=== PATIENT | male | born 1960 | race Caucasian/White ===

== ENCOUNTER 2016-07-03 08:44 | Emergency (ER) | payer MEDICARE ==
[~2016-07-03 08:44] MED LIST: ASA5GR PO; ASAB PO; ASABAYER PO; ATV1 PO; BENTYL10 PO; CENTRUM PO; CORDARONE PO; COREG3 PO; D100 PO; FLEXERIL5 MG PO; GLUCPH PO; GOODY'S EX-STR1 EAC1 PO; HALF81 PO; IMDUR30 PO; KAPIDEX60 MG PO; KLONO1 PO; LIPITOR40 PO; MONODOX100 MG PO; MULTIPLE VIT PO; NITROQUICK0.4 MG SL; NITROSTAT0.3 MG SL; NITROSTAT0.4 MG; NITROSTAT0.4 MG SL; NORCO1 TA1 PO; PEP20 PO; PHENYTOIN EX PO; PLAVIX PO; PRAVACHOL40 MG PO; PRIN2.5 PO; PROTONIX PO; SUCR PO; VITC500 PO
[2016-07-03 09:25] LABS: BASOPHILS 0.7 %; BASOPHILS ABSOLUTE 0.05 10/3/uL (0.0-0.16); EOSINOPHILS 1.7 %; EOSINOPHILS ABSOLUTE 0.13 10/3/uL (0.0-0.53); HEMOGLOBIN 11.8 g/dL (13.6-17.8); IMMATURE GRANULOCYTES 0.4 %; IMMATURE GRANULOCYTES ABSOLUTE 0.03 10/3/uL (0.0-0.11); LYMPHOCYTES 19.8 %; LYMPHOCYTES ABSOLUTE 1.47 10/3/uL (0.67-4.30); MEAN CORPUS HGB CONC 32.9 g/dL (32.0-36.0); MEAN CORPUSCULAR HEMOGLOB 29.1 pg (26.0-34.0); MEAN PLATELET VOLUME 8.6 fL (9.2-13.0); MONOCYTES 8.9 %; MONOCYTES ABSOLUTE 0.66 10/3/uL (0.21-1.20); NEUTROPHILS 68.5 %; PLATELET COUNT 320 10/3/uL (150-400); RBC DISTRIBUTION WIDTH 15.6 % (12.0-16.0); RED CELL COUNT 4.06 10/6/uL (4.7-6.1); WHITE BLOOD CELLS 7.4 10/3/uL (4.5-10.5)
[2016-07-03 09:27] LABS: HEMATOCRIT 35.9 % (40.0-51.0); MANUAL DIFF NO %; MEAN CORPUSCULAR VOLUME 88.4 fL (80-100)
[2016-07-03 09:31] LABS: ASCORBIC ACID (UR NOT ORDER) NEG (NEG); BILIRUBIN, URINE NEGATIVE (NEG); ER URINALYSIS TAT 0 Hrs 08 Mins; KETONE, URINE NEGATIVE (NEG); LEUKOCYTE ESTERASE(NOT OR NEG (NEG); NITRITE (URINE) NEG (NEG); WBC (NOT ORDERED) (RFLEX) < 1 (0-5)
[2016-07-03 09:32] LABS: INTERNATIONAL NORMAL RATI 1.1 UNITS (-); PROTIME (NOT ORD) 14.1 SEC (12.0-14.5)
[2016-07-03 09:33] LABS: PARTIAL THROMBO TIME 31.2 SEC (22.5-37.2)
[2016-07-03 09:44] LABS: CALCIUM, SERUM 8.9 MG/DL (8.5-10.4); CHEST PAIN PROFILE TAT 0 Hrs 25 Mins; CHLORIDE, SERUM 106 MMOL/L (96-112); CO2 (CARBON DIOXIDE) 27 MMOL/L (24-34); CREATININE 0.52 MG/DL (0.70-1.30); GFR AFRICAN AMERICAN 137 ML/MIN (>=60); GFR NON AFRICAN AMERICAN 118 ML/MIN (>=60); POTASSIUM, SERUM 4.2 MMOL/L (3.5-5.3); SGOT(AST) 18 U/L (5-40); SGPT(ALT) 15 U/L (5-65); SODIUM, SERUM 140 MMOL/L (135-148); TOTAL BILIRUBIN 0.1 MG/DL (0-1.2); TOTAL PROTEIN 6.4 G/DL (6.0-8.5); TROPONIN I 0.02 NG/ML (<0.05)
[2016-07-03 09:45] LABS: ALBUMIN 2.7 G/DL (3.5-5.0); ALKALINE PHOSPHATASE 84 U/L (45-117); BUN (BLOOD UREA NITROGEN) 6 MG/DL (6-23); DIRECT BILIRUBIN < 0.1 MG/DL (0.0-0.4); GLUCOSE, SERUM 102 MG/DL (60-99)
[2016-07-03 10:45] LABS: DILANTIN (PHENYTOIN) 1.7 MCG/ML (10.0-20.0)
[2016-11-10] MEDS ORDERED: PEP20 PO (16:07)
[2016-11-10] MEDS ORDERED: SUCR PO (16:07)
[2016-11-10] MEDS ORDERED: D100 PO (16:07)
[2016-11-10] MEDS ORDERED: LIPITOR40 PO (16:07)
[2016-11-10] MEDS ORDERED: KAPIDEX60 MG PO (16:08)
[2016-11-10] MEDS ORDERED: PLAVIX PO (16:08)
== END 2016-07-03 11:16 | disposition home or self-care (01) ==
LOC: ER 08:44
PROVIDERS: Emergency Medicine
DX: R10.10 Upper abdominal pain, unspecified (principal); R07.9 Chest pain, unspecified; R11.2 Nausea with vomiting, unspecified; J44.9 Chronic obstructive pulmonary disease, unspecified; I25.10 Atherosclerotic heart disease of native coronary artery without angina pectoris; E11.9 Type 2 diabetes mellitus without complications; F17.200 Nicotine dependence, unspecified, uncomplicated; Z88.5 Allergy status to narcotic agent; Z79.82 Long term (current) use of aspirin; Z79.899 Other long term (current) drug therapy
CPT/HCPCS: 71010; 74176; 80048; 80076; 80185; 81001; 83605; 83690; 83735; 84484; 85025; 85610; 85730; 93005; 96374; 99285; J1170; J2405